=== PATIENT | male | born 2000 | race African-American/Black ===

== ENCOUNTER 2020-08-04 10:04 | Emergency (ER) | payer OTHER, SELFPAY ==
[2020-08-04] MEDS ORDERED: LIDOCAINE 1% 20 ML MDV ONE (10:49)
[2020-08-04] MEDS ORDERED: TETANUS & DIPHTHERIA TOX,ADULT 0.5 ML VIAL ONE (10:50)
--- NOTE | 2020-08-04 11:23 | EDPHYS ---
Physician Documentation [facility] Name: Rex Fernández Jr Age: 19 yrs Sex: Male : 2000 Arrival Date: 08/04/2020 Time: 10:06 Bed 13 Private MD: ED Physician Chava Garcia HPI: 08/04 10:50 This 19 yrs old Black Male presents to ER via Ambulatory with complaints of Laceration kb To Leg. 10:50 The patient has a laceration related to: working, occurred at work, and there are no kb complicating factors. The injury was accidental. The laceration(s) is(are) located on the right walter. Onset: The symptoms/episode began/occurred just prior to arrival. Associated signs and symptoms: The patient has no apparent associated signs or symptoms. The patient has not experienced similar symptoms in the past. The patient has not recently seen a physician. Pt reports he was moving materials for a wall and one fell onto his leg causing laceration. . Historical: - Allergies: 10:47 No Known Allergies; bp - Home Meds: 10:47 None [Active]; bp - PMHx: 10:47 None; bp - Immunization history:: Adult Immunizations up to date. - Social history:: Smoking status: Patient denies any tobacco usage or history of. ROS: 10:49 Constitutional: Negative for fever, chills, and weight loss. kb 10:49 MS/extremity: Positive for laceration, of the right walter. 10:49 Skin: Positive for laceration(s), of the right walter. Exam: 10:49 Constitutional: This is a well developed, well nourished patient who is awake, alert, kb and in no acute distress. Head/Face: Normocephalic, atraumatic. MS/ Extremity: Pulses equal, no cyanosis. Neurovascular intact. Full, normal range of motion. 10:49 Skin: injury, laceration(s), the wound is approximately 4 cm(s), of the right walter, that can be described as clean, no foreign body, linear, without bleeding. 10:49 Neuro: Orientation: is normal, to person, place, time \T\ situation. Mentation: is normal, Motor: is normal, moves all fours, Sensation: is normal, Gait: is steady, without difficulty. Vital Signs: 10:10 BP 123 / 79; Pulse 85; Resp 16; Temp 98.1; Pulse Ox 99% ; bp 11:44 BP 117 / 69; Pulse 79; Resp 16; Temp 98.1; Pulse Ox 99% ; bp Laceration: 11:22 Wound Repair of 4cm ( 1.6in ) subcutaneous laceration to right walter. Linear shaped.. kb Distal neuro/vascular/tendon intact. Anesthesia: Wound infiltrated with 4 mls of 1% lidocaine. Wound prep: Extensive cleansing with hibiclenz by me, Wound irrigation with saline by me. Skin closed with 9 4-0 Prolene using interrupted sutures and sterile technique. Dressed with Neosporin. Patient tolerated well. MDM: 10:12 Patient medically screened. kb 10:48 Data reviewed: vital signs, nurses notes. Data interpreted: Pulse oximetry: on room air kb is 99 %. Interpretation: normal. Counseling: I had a detailed discussion with the patient and/or guardian regarding: the historical points, exam findings, and any diagnostic results supporting the discharge/admit diagnosis, the need for outpatient follow up, a family practitioner, to return to the emergency department if symptoms worsen or persist or if there are any questions or concerns that arise at home. 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 Exp: bp 09/29/2021. Lot #: [id number]. } Route: IM; Site: right deltoid; 11:44 Follow up: Response: No adverse reaction bp 10:35 Drug: Lidocaine (1 %) 1 vials {Note: at b/s.} Volume: 20 ml; Route: Infiltration; bp Disposition: 11:46 Co-signature as Attending Physician, Chava Garcia MD. rn Disposition: 08/04/20 11:23 Discharged to Home. Impression: Laceration without foreign body of lower leg. - Condition is Stable. - Discharge Instructions: Laceration Care, Adult, [id number]. - Work release form, Medication Reconciliation Form, Thank You Letter, Antibiotic Education, Prescription Opioid Use form. - Follow up: Emergency Department; When: As needed; Reason: Worsening of condition. Follow up: Private Physician; When: 2 - 3 days; Reason: Recheck today's complaints, Continuance of care, Re-evaluation by your physician. Signatures: Hedy Posey, MELINDA-C WEDD[place] FLORIST-Ckb Chava Garcia MD MD rn Bony El RN RN bp Corrections: (The following items were deleted from the chart) 11:45 11:23 08/04/2020 11:23 Discharged to Home. Impression: Laceration without foreign body bp of lower leg. Condition is Stable. Forms are Medication Reconciliation Form, Thank You Letter, Antibiotic Education, Prescription Opioid Use. Follow up: Emergency Department; When: As needed; Reason: Worsening of condition. Follow up: Private Physician; When: 2 - 3 days; Reason: Recheck today's complaints, Continuance of care, Re-evaluation by your physician. kb
--- NOTE | 2020-08-04 11:23 | ER ---
Nurse's Notes [facility] Name: Rex Fernández Jr Age: 19 yrs Sex: Male : 2000 Arrival Date: 08/04/2020 Time: 10:06 Bed 13 Private MD: Diagnosis: Laceration without foreign body of lower leg Presentation: 08/04 10:10 Chief complaint: Patient states: 5CM LAC TO LEFT LE, CORRUGATED TIN, OCCURRED AT WORK. bp Coronavirus screen: At this time, the client does not indicate any symptoms associated with coronavirus-19. Ebola Screen: No symptoms or risks identified at this time. Complicating Factors: There are no complicating factors for this patient. Initial Sepsis Screen: Does the patient meet any 2 criteria? No. Patient's initial sepsis screen is negative. Does the patient have a suspected source of infection? No. Patient's initial sepsis screen is negative. Risk Assessment: Do you want to hurt yourself or someone else? Patient reports no desire to harm self or others. Onset of symptoms was August 04, 2020 at 09:30. 10:10 Method Of Arrival: Ambulatory bp 10:10 Acuity: JON 3 bp Triage Assessment: 10:47 General: Appears in no apparent distress. uncomfortable, Behavior is cooperative, bp appropriate for age, anxious. Pain: Complains of pain in right walter. EENT: No deficits noted. Neuro: No deficits noted. Cardiovascular: No deficits noted. Respiratory: No deficits noted. GI: No deficits noted. : No signs and/or symptoms were reported regarding the genitourinary system. Derm: No deficits noted. Musculoskeletal: No deficits noted. Injury Description: Laceration sustained to right walter is 2.6 to 7.5 cm long, not bleeding, was sustained 1-2 hours ago. is bleeding a small amount. Historical: - Allergies: 10:47 No Known Allergies; bp - Home Meds: 10:47 None [Active]; bp - PMHx: 10:47 None; bp - Immunization history:: Adult Immunizations up to date. - Social history:: Smoking status: Patient denies any tobacco usage or history of. Screenin:10 Abuse screen: Denies threats or abuse. Denies injuries from another. Nutritional bp screening: No deficits noted. Tuberculosis screening: No symptoms or risk factors identified. Fall Risk None identified. Assessment: 10:10 General: SEE TRIAGE NOTE. Injury Description: Laceration sustained to right walter is 2.6 bp to 7.5 cm long, not bleeding. 11:44 Reassessment: PT D/C HOME AMBULATORY, DX WITH LACERATION WITHOUT FOREIGN BODY OF LOWER bp LEG. Vital Signs: 10:10 BP 123 / 79; Pulse 85; Resp 16; Temp 98.1; Pulse Ox 99% ; bp 11:44 BP 117 / 69; Pulse 79; Resp 16; Temp 98.1; Pulse Ox 99% ; bp ED Course: 10:06 Patient arrived in ED. as 10:10 Bony El, RN is Primary Nurse. bp 10:10 Patient has correct armband on for positive identification. Bed in low position. Call bp light in reach. Side rails up X2. 10:12 H[facility]ose[facility]-C [facility] kb 10:12 Chava Garcia MD is Attending Physician. kb 10:47 Triage completed. bp 10:47 Arm band placed on. bp 11:00 Assist provider with laceration repair on right walter that was between 2.6 to 7.5 cm bp using sutures. Set up tray. Performed by Hedy GOLDEN Dressed with Neosporin, Patient tolerated well. 11:43 Patient did not have IV access during this emergency room visit. 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 Exp: bp 09/29/2021. Lot #: [id number]. } Route: IM; Site: right deltoid; 11:44 Follow up: Response: No adverse reaction bp 10:35 Drug: Lidocaine (1 %) 1 vials {Note: at b/s.} Volume: 20 ml; Route: Infiltration; bp Outcome: 11:23 Discharge ordered by MD. kb 11:44 Discharged to home ambulatory. bp 11:44 Condition: stable 11:44 Discharge instructions given to patient, Instructed on discharge instructions, follow up and referral plans. wound care, Demonstrated understanding of instructions, follow-up care, wound care. 11:45 Patient left the ED. bp Signatures: Hedy Posey FNP-C OBGYN SPECIALIST-Joshb Priscilla Joseph as Bony El, RN RN bp
[2020-08-04 11:58] VITALS: TEMP 98.1; O2SAT 99
[2020-08-04 11:59] VITALS: BP 117/69
== END 2020-08-04 11:45 | disposition home or self-care (01) ==
LOC: ER 10:04
PROC: 0JQN0ZZ Repair Right Lower Leg Subcutaneous Tissue and Fascia, Open Approach (ICD-10-PCS; principal; 2020-08-04)
DX: S81.811A Laceration without foreign body, right lower leg, initial encounter (principal); W22.8XXA Striking against or struck by other objects, initial encounter; Y93.89 Activity, other specified; Y92.89 Other specified places as the place of occurrence of the external cause; Y99.8 Other external cause status; Z23 Encounter for immunization
CPT/HCPCS: 90471; 90714; 99283

== ENCOUNTER 2020-09-05 12:53 | Emergency (ER) | payer SELFPAY ==
[2020-09-05] MEDS ORDERED: LIDOCAINE 1% MPF 5 ML VIAL ONE (15:10)
--- NOTE | 2020-09-05 15:25 | EDPHYS ---
Physician Documentation [facility] Name: Rex Fernández Jr Age: 19 yrs Sex: Male : 2000 Arrival Date: 09/05/2020 Time: 12:55 Bed DIS5 Private MD: ED Physician Mir Montana HPI: 09/05 18:03 This 19 yrs old Black Male presents to ER via Ambulatory with complaints of Laceration kb To Hand. 18:03 The patient has a laceration related to: cleaning up glass occurred at home, and there kb are no complicating factors. The injury was accidental. The laceration(s) is(are) located on the dorsum of right hand. Onset: The symptoms/episode began/occurred just prior to arrival. Associated signs and symptoms: The patient has no apparent associated signs or symptoms. The patient has not experienced similar symptoms in the past. The patient has not recently seen a physician. Historical: - Allergies: 13:36 No Known Allergies; ca1 - Home Meds: 13:36 None [Active]; ca1 - PMHx: 13:36 None; ca1 - PSHx: 13:36 None; ca1 - Immunization history:: Last tetanus immunization: up to date. - Social history:: Smoking status: Patient denies any tobacco usage or history of. ROS: 18:02 Constitutional: Negative for fever, chills, and weight loss, MS/Extremity: Negative for kb injury and deformity, Neuro: Negative for headache, weakness, numbness, tingling, and seizure. 18:02 Skin: Positive for laceration(s), of the dorsum of right hand. Exam: 18:02 Constitutional: This is a well developed, well nourished patient who is awake, alert, kb and in no acute distress. Head/Face: Normocephalic, atraumatic. MS/ Extremity: Pulses equal, no cyanosis. Neurovascular intact. Full, normal range of motion. Neuro: Awake and alert, GCS 15, oriented to person, place, time, and situation. Moves all extremities. Normal gait. 18:02 Skin: injury, laceration(s), the wound is approximately 2 cm(s), of the dorsum of right hand, that can be described as clean, no foreign body, linear, without bleeding. Vital Signs: 13:34 BP 132 / 85; Pulse 62; Resp 16 S; Temp 97.9(TE); Pulse Ox 95% on R/A; Weight 67.13 kg ca1 (R); Height 5 ft. 8 in. (172.72 cm) (R); Pain 0/10; 13:34 Body Mass Index 22.50 (67.13 kg, 172.72 cm) ca1 Laceration: 15:24 Wound Repair of 2cm ( 0.8in ) subcutaneous laceration to dorsum of right hand. Linear kb shaped.. Distal neuro/vascular/tendon intact. Anesthesia: Wound infiltrated with 1.5 mls of 1% lidocaine. Wound prep: Extensive cleansing with hibiclenz, Wound irrigation with saline by co. Skin closed with 3 5-0 Prolene using simple sutures and sterile technique. Patient tolerated well. MDM: 14:33 Patient medically screened. kb 15:24 Data reviewed: vital signs, nurses notes. Data interpreted: Pulse oximetry: on room air kb is 95 %. Interpretation: normal. Counseling: I had a detailed discussion with the patient and/or guardian regarding: the historical points, exam findings, and any diagnostic results supporting the discharge/admit diagnosis, the need for outpatient follow up, a family practitioner, to return to the emergency department if symptoms worsen or persist or if there are any questions or concerns that arise at home. 09/05 14:46 Order name: Prolene, Sutures; Complete Time: 14:56 kb 09/05 14:46 Order name: Dressing - Wound; Complete Time: 15:26 kb 09/05 14:46 Order name: Gloves, Sterile; Complete Time: 14:56 kb 09/05 14:46 Order name: Setup Suture Tray; Complete Time: 14:56 kb Administered Medications: 15:20 Drug: Lidocaine (1 %) 1 vials {Note: administered by CHAUNCEY Knott.} Volume: 5 ml; Route: ss Infiltration; Disposition: 09/06 08:01 Co-signature as Attending Physician, Mir Montana MD I agree with the assessment and kdr plan of care. Disposition: 09/05/20 15:25 Discharged to Home. Impression: Laceration without foreign body of left hand. - Condition is Stable. - Discharge Instructions: Laceration Care, Adult, [id number]. - Medication Reconciliation Form, Thank You Letter, Antibiotic Education, Prescription Opioid Use, Work release form form. - Follow up: Emergency Department; When: As needed; Reason: Worsening of condition. Follow up: Private Physician; When: 2 - 3 days; Reason: Recheck today's complaints, Continuance of care, Re-evaluation by your physician. Signatures: Hedy Posey, MELINDA-C PORTFOLIO MANAGER-Mir Trent MD MD [facility] Alana Mathew RN RN ss Rachel Mack RN RN [facility] Corrections: (The following items were deleted from the chart) 09/05 15:52 15:25 09/05/2020 15:25 Discharged to Home. Impression: Laceration without foreign body ss of left hand. Condition is Stable. Forms are Medication Reconciliation Form, Thank You Letter, Antibiotic Education, Prescription Opioid Use. Follow up: Emergency Department; When: As needed; Reason: Worsening of condition. Follow up: Private Physician; When: 2 - 3 days; Reason: Recheck today's complaints, Continuance of care, Re-evaluation by your physician. kb
--- NOTE | 2020-09-05 15:25 | ER ---
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 Lac caused by a piece of ca1 glass, bleeding controlled. Coronavirus screen: Client denies travel out of the [place] in the last 14 days. At this time, the client does not indicate any symptoms associated with coronavirus-19. Ebola Screen: Patient negative for fever greater than or equal to 101.5 degrees Fahrenheit, and additional compatible Ebola Virus Disease symptoms Patient denies exposure to infectious person. Patient denies travel to an Ebola-affected area in the 21 days before illness onset. No symptoms or risks identified at this time. Initial Sepsis Screen: Does the patient meet any 2 criteria? No. Patient's initial sepsis screen is negative. Does the patient have a suspected source of infection? No. Patient's initial sepsis screen is negative. Risk Assessment: Do you want to hurt yourself or someone else? Patient reports no desire to harm self or others. Onset of symptoms was September 05, 2020. 13:34 Method Of Arrival: Ambulatory ca1 13:34 Acuity: JON 4 ca1 Historical: - Allergies: 13:36 No Known Allergies; ca1 - Home Meds: 13:36 None [Active]; ca1 - PMHx: 13:36 None; ca1 - PSHx: 13:36 None; ca1 - Immunization history:: Last tetanus immunization: up to date. - Social history:: Smoking status: Patient denies any tobacco usage or history of. Screenin:45 Abuse screen: Denies threats or abuse. Denies injuries from another. Nutritional ss screening: No deficits noted. Tuberculosis screening: Never had TB. Fall Risk None identified. Assessment: 14:45 General: Appears in no apparent distress. comfortable, Behavior is calm, cooperative. ss Pain: Complains of pain in dorsum of right hand Pain currently is 0 out of 10 on a pain scale. at worst was 4 out of 10 on a pain scale. Quality of pain is described as tender. Neuro: Level of Consciousness is awake, alert, obeys commands, Oriented to person, place, time, situation. Cardiovascular: Capillary refill < 3 seconds is brisk in bilateral fingers. Respiratory: Airway is patent Respiratory effort is even, unlabored, Respiratory pattern is regular, symmetrical. GI: Patient currently denies diarrhea, nausea, vomiting. EENT: Oral mucosa is moist. Derm: Skin is intact, is healthy with good turgor, Skin is dry, Skin is pink, warm \T\ dry. normal. Musculoskeletal: Circulation, motion, and sensation intact. Range of motion: intact in all extremities, Swelling absent. Injury Description: Laceration sustained to dorsum of right hand is clean, 0.5 to 2.5 cm long, is bleeding no active bleeding noted. Vital Signs: 13:34 BP 132 / 85; Pulse 62; Resp 16 S; Temp 97.9(TE); Pulse Ox 95% on R/A; Weight 67.13 kg ca1 (R); Height 5 ft. 8 in. (172.72 cm) (R); Pain 0/10; 13:34 Body Mass Index 22.50 (67.13 kg, 172.72 cm) ca1 ED Course: 12:55 Patient arrived in ED. am2 13:36 Triage completed. ca1 13:36 Arm band placed on right wrist. ca1 14:32 Hedy Posey FNP-C [facility]. kb 14:32 Mir Montana MD is Attending Physician. kb 14:45 Patient has correct armband on for positive identification. Bed in low position. Call ss light in reach. 14:49 Alana Mathew RN is Primary Nurse. ss 15:51 No provider procedures requiring assistance completed. Patient did not have IV access ss during this emergency room visit. Administered Medications: 15:20 Drug: Lidocaine (1 %) 1 vials {Note: administered by NP. Hedy} Volume: 5 ml; Route: ss Infiltration; Outcome: 15:25 Discharge ordered by . kb 15:51 Discharged to home ambulatory. ss 15:51 Condition: good 15:51 Discharge instructions given to patient, Instructed on discharge instructions, follow up and referral plans. medication usage, Demonstrated understanding of instructions, follow-up care, wound care. 15:52 Patient left the ED. ss Signatures: Hedy Posey FNP-C FNP-Alana Cook RN RN ss Kaur Dunaway am2 Rachel Mack, RN RN ca1
[2020-09-05 16:10] VITALS: BP 132/85; TEMP 97.9; O2SAT 95
== END 2020-09-05 15:52 | disposition home or self-care (01) ==
LOC: ER 12:53
PROC: 0HQFXZZ Repair Right Hand Skin, External Approach (ICD-10-PCS; principal; 2020-09-05)
DX: S61.411A Laceration without foreign body of right hand, initial encounter (principal); W25.XXXA Contact with sharp glass, initial encounter
CPT/HCPCS: 99283